=== PATIENT | female | born 1930 | race Caucasian/White ===

== ENCOUNTER → 2016-09-25 | Outpatient (CLI) | payer MEDICARE, BC ==
[~2016-09-25] MED LIST: DARVOCET-N 1001 TA1 DOB; FOSAMAX5 MG; GLUCOPHAGE500 MG PO; GLUCOTROL; HCTZ; HYDROCHLOROTHIA25 MG PO; LISINOPRIL10 MG; LOVASTATIN10 MG; MEVACOR40 MG PO; MULTI-DAY VITAM1 TAB PO; NATURAL VITA100 UNIT; NATURAL VITA400 UNI2 PO; PRINIVIL20 M1 PO; VITAMIN B-12500 MC1 PO; ZANTAC150 MG; ZANTAC300 MG PO
--- NOTE | ~2016-09-25 | BD1 ---
[facility] A Service of [facility] / [facility] RADIOLOGY TEXT RESULTS PATIENT: RAHUL STOVER LOCATION: [facility] : [birth year] UNIT #: [id number] AGE: [address]: Ginny Monroe SEX: F ORDER DR: [id number] [facility] [address] [place], [place] [address] [id number] O MR#: [id number] Acc #: [id number] NAME: RAHUL STOVER : 1930 SEX: F STUDY DATE/TIME: 09/25/2016 10:42 UNIT: [facility] ROOM: STUDY DESCRIPTION: BD Dexa Bone Dens 1+ Site Attending Physician: Ginny Monroe A.P.R.N. Referring Physician: Ginny Monroe A.P.R.N. Ordering Physician: Ginny Monroe A.P.R.N. Primary Care Physician: Ginny Monroe A.P.R.N. MEDICAL IMAGING REPORT This report is preliminary unless electronic signature is present EXAM DEXA scan of the left hip and forearm HISTORY Postmenopausal osteoporosis screening. Previous spine surgery. COMPARISON 02/28/2013 FINDINGS The exam was performed on Hologic machine. The left hip neck bone mineral density is 0.62 gm/cm2 for a T score of -2.1 and a Z score which cannot be calculated because of the patient's advanced age. The distal third of the radius BMD is 0.513 for a T score of -3.0. The prior study only included the radius study, the distal third of the radius had a T score of -3.0 at that time. IMPRESSION Osteoporosis. T score in the distal radius is -3.0 and is unchanged from 02/28/2013. Dictated by... Juan Antonio Bethea M.D. THIS IS AN ELECTRONICALLY VERIFIED REPORT Juan Antonio Bethea M.D. at 09/27/2016 8:36 AM Katlyn TD: 09/26/2016 16:48 JOB #: [id number] MEDICAL IMAGING REPORT Page 1 of 1 COPY
== END | disposition home or self-care (01) ==
LOC: CWCC 10:24
DX: M81.0 Age-related osteoporosis without current pathological fracture (principal); Z78.0 Asymptomatic menopausal state
CPT/HCPCS: 77080